=== PATIENT | female | born 1990 | race Caucasian/White ===

== ENCOUNTER 2024-04-21 09:16 | Outpatient (CLI) | payer OTHER, SELFPAY ==
[2024-04-23 03:14] LABS: HPV Source Cervix; HPV, High Risk by TMA Not Detected
== END 2024-04-21 09:17 | disposition home or self-care (01) ==
PROVIDERS: Visit Provider Registered Nurse
DX: Z12.4 Encounter for screening for malignant neoplasm of cervix (principal); Z11.51 Encounter for screening for human papillomavirus (HPV); Z13.220 Encounter for screening for lipoid disorders
CPT/HCPCS: 80061; 87624; 87625; 88141; 88142

== ENCOUNTER 2024-07-07 06:57 | Day surgery (SDC) | payer OTHER, SELFPAY ==
[2024-07-07] VITALS (15 sets, daily range): BP systolic 101–133; BP diastolic 65–82; PULSE 60–95; RESP 14–16; TEMP 36.1–37.1; O2SAT 98–99; BMI 26.0
[2024-07-07 08:19] LABS: Ur HCG Qualitative* Negative (Negative)
[2024-07-07 08:21] LABS: Hemoglobin* 13.7 gm/dL (12.0-16.0)
[2024-07-07] MEDS: LACTATED RINGERS 1000 ML 1,000 ML 100 ML IV (08:23)
[2024-07-07] MEDS: SODIUM CHLORIDE 0.9 % (FLUSH) 10 ML SYRINGE IVF (08:23)
--- NOTE | 2024-07-07 08:36 | W.PM.H&PU ---
History & Physical Update History & Physical Update H&P Reviewed and patient assessed: No changes noted
--- NOTE | 2024-07-07 09:27 | P.ANES_ITS ---
Anesthesia Charges Start Date/Time Anesthesia Start Date: 07/07/24 Anesthesia Start Time: 08:59 Stop Date/Time Anesthesia Stop Date: 07/07/24 Anesthesia Stop Time: 10:09 Coding CPT Codes CPT Codes: ANESTH SURG LOWER ABDOMEN - 49930 ([id number]) P1 - NORMAL HEALTHY PATIENT, QK - INVERFORM MACHINE OPERATOR 2-4 CNCRNT ANES PROC, QX - MANAGER ETL SVNacho W/ MED DIRECTION
--- NOTE | 2024-07-07 09:27 | W.ANESCHARGE ---
Anesthesia Charges Start Date/Time Anesthesia Start Date: 07/07/24 Anesthesia Start Time: 08:59 Stop Date/Time Anesthesia Stop Date: 07/07/24 Anesthesia Stop Time: 10:09 Coding CPT Codes CPT Codes: ANESTH SURG LOWER ABDOMEN - 77444 ([id number]) P1 - NORMAL HEALTHY PATIENT, QK - FOREIGN TRADE TEACHER 2-4 CNCRNT ANES PROC, QX - TAKE OFF WORKER SVNacho W/ MED DIRECTION
--- NOTE | 2024-07-07 09:30 | SUR.OPER ---
PATIENT QUESTIONS ANSWERED SATISFACTORILY PREOPERATIVELY. PATIENT BROUGHT TO OR #4 PER CART. Patient positioned supine on OR #4 bed for the intubation. Pt. then moved into the lithotomy position for the procedure. Perioperative team/Dulce Maria padded and tucked the arms at pt. sides in a neutral position. ? Final approval of positioning by surgeon.
--- NOTE | 2024-07-07 09:55 | P.GYNPRC_ITS ---
Procedure Note Date of procedure: 07/07/24 Will [facility] bill your pro fee for this procedure?: Yes Pre-op diagnosis: Family planning Post-op diagnosis: Family planning Procedure: Laparoscopic bilateral salpingectomy Anesthesia: GETA Complications: None Surgeon: Pa Smith MD Estimated blood loss (mL): 5 IV fluids (mL): 800 Urine Output (mL): 50 Pathology: specimen obtained, sent to pathology Condition: stable Disposition: same day Findings: Findings: Bimanual exam: Midline uterus of normal size, adnexa without palpable masses, pelvic exam with speculum: Cervix without any abnormal discharge or lesions. Intra-abdominal survey: Preperitoneal insufflation, grossly normal liver, stomach and intestine. Uterus midline of around 8 cm, bilateral ovaries within normal limits, fallopian tubes normal, left small around 1cm paratubal cyst. Procedure Description: Patient was taken to the OR with IV fluid running and pneumatic compression stockings applied to the lower extremities. General anesthesia was obtained w iththelma mckeon. The patient was placed in the dorsal lithotomy position with Pepe type stirrups with knee bent at 30 degree angles. Patient was prepared and draped under usual sterile technique. Examination under anesthesia revealed a normal size, midline uterus. The bladder was emptied and Bradley catheter placed. Speculum was placed in the vagina. The anterior lip of the cervix was grasped with a single-tooth tenaculum. Uterine manipulator was introduced. Periumbilical skin infiltrated with 0.5%Marcaine and two Allis clamps were applied to the periumbilical skin for manual elevation of the abdomen. A vertical skin incision was made in the umbilical fold. 5 mm Optiview trocar with gas set to flow at 5mmHg introduced into the peritoneal cavity without difficulty, while removing introducer trocar slipped back preperitoneally so introducer re inserted and intraperitoneal placement again noted and kept in place. Pneumoperitoneum was established with CO2 gas to a pressure of 15mmHg. The Trendelenburg position was obtained to facilitate pelvic exposure. Findings as above. An intra-abdominal survey revealed normal-appearing liver, gallbladder, spleen, and lack of any visceral or vascular injury. Two 5 mm trocars were inserted on the bilateral lower quadrants under direct laparoscopic visualization. The left fallopian tube was elevated away from the pelvic sidewall with an atraumatic grasper. Utilizing LigaSure bipolar energy mesosalpinx was serially coagulated and cut until cornual region. Hemostasis was achieved. Left paratubal cyst was drained and fallopian tube was easily removed via 5 mm trocar. Same procedure performed on right fallopian tube. Hemostasis secured. Both fallopian tubes sent to pathology. Abdomen and pelvis were thoroughly inspected. Good hemostasis was noted at resection sites. Trocars removed under direct visualization. All instruments were removed from the abdomen and vagina. The pneumoperitoneum was released, and correct inst rument counts were confirmed. Skin incisions were closed with 4-0 Monocryl sutures in a subcuticular fashion. The patient was taken to the recovery room in a stable condition. Patient will be discharged from recovery after all the criteria are met for discharge. She was given instructions regarding follow-up visit in 2 weeks at the [facility]. Postop pain management, lifting restrictions, intercourse restrictions were discussed with patient before surgery all questions were answered.
[2024-07-07] MEDS: MEPERIDINE 25 MG/ML INJ 12.5 MG IVP (10:10)
--- NOTE | 2024-07-07 10:12 | P.ANES_ITS ---
Anesthesia Charges Start Date/Time Anesthesia Start Date: 07/07/24 Anesthesia Start Time: 08:59 Stop Date/Time Anesthesia Stop Date: 07/07/24 Anesthesia Stop Time: 10:09 Coding CPT Codes CPT Codes: ANESTH SURG LOWER ABDOMEN - 62800 ([id number]) P1 - NORMAL HEALTHY PATIENT, QK - BELT PRESS OPERATOR 2-4 CNCRNT ANES PROC, QX - SERVICE RIG OPERATOR SVNacho W/ MED DIRECTION
--- NOTE | 2024-07-07 10:12 | W.ANESCHARGE ---
Anesthesia Charges Start Date/Time Anesthesia Start Date: 07/07/24 Anesthesia Start Time: 08:59 Stop Date/Time Anesthesia Stop Date: 07/07/24 Anesthesia Stop Time: 10:09 Coding CPT Codes CPT Codes: ANESTH SURG LOWER ABDOMEN - 57348 ([id number]) P1 - NORMAL HEALTHY PATIENT, QK - ROCK CUTTER 2-4 CNCRNT ANES PROC, QX - SOAKING PIT OPERATOR SVNacho W/ MED DIRECTION
--- NOTE | 2024-07-07 12:58 | SUR.PHASEII ---
pt doing well. Tolerated juice and crackers without difficulty. Ambulated to bathroom without difficulty. 3 lap sites c/d/i. Pt reports some gas pains in right shoulder and abdomen.
== END 2024-07-07 13:15 | disposition home or self-care (01) ==
LOC: OR 07:00
PROVIDERS: PCP Registered Nurse; Visit Provider Obstetrics & Gynecology
PROC: (CPT 58661; principal; 2024-07-07 09:00)
DX: Z30.2 Encounter for sterilization (principal)
CPT/HCPCS: 58661; 00840; 36415; 81025; 85018; 88302; J1100; J2175; J2250; J2704; J2710; J3010; J3490; J7120